=== PATIENT | female | born 1975 | race Caucasian/White ===

== ENCOUNTER 2020-10-02 19:18 | Emergency (ER) | payer BC ==
[~2020-10-02] VITALS: Ht 170.2 cm; Wt 63.5 kg
--- NOTE | 2020-10-02 20:00 | NUR ---
Lynne powers in [facility] - 10/02/20 at 2219 by HERRERA PT AMBULATED TO BATHROOM W/ ASSIST.
--- NOTE | 2020-10-02 20:00 | NUR ---
PT AMBULATED TO BATHROOM W/ ASSIST.
--- NOTE | 2020-10-02 20:28 | NUR ---
LEATHA FROM [facility], TO ER BED 11. PT IS AWAKE, ALERT BUT INTOXICATED. CRYING AT TIMES. BROUGHT IN FOR INTOXICATION S/P INGESTING 2 BOTTLES OF VANILLA EXTRACT WHICH CONTAINS 40% ETHANOL IN EACH BOTTLE. WAS AT THE BEDSIDE FOR EVAL. ORDERS RECIEVED, NOTED AND CARRIED OUT.
[2020-10-02 20:40] LABS: BASOPHILS # (AUTO) 0.1 /CMM (0.0-0.2); BASOPHILS % (AUTO) 1.1 % (0.0-2.0); EOSINOPHILS % (AUTO) 0.7 % (0.0-6.0); HEMATOCRIT 45 % (33-45); HEMOGLOBIN 15.2 g/dL (11.5-14.8); LYMPHOCYTES # (AUTO) 1.4 /CMM (0.8-4.8); LYMPHOCYTES % (AUTO) 26.3 % (20.0-44.0); MEAN CORPUSCULAR HGB CONC 34 g/dl (31.0-36.0); MEAN CORPUSCULAR VOLUME 102 fL (82-100); MONOCYTES # (AUTO) 0.2 /CMM (0.1-1.30); MONOCYTES % (AUTO) 4.2 % (2.0-12.0); NEUTROPHILS # (AUTO) 3.6 /CMM (1.8-8.9); NEUTROPHILS % (AUTO) 67.7 % (43.0-81.0); PLATELET COUNT (AUTO) 144 /CMM (150-450); RED BLOOD CELL COUNT(AUTO) 4.41 MIL/uL (4.0-5.2); WHITE BLOOD COUNT (AUTO) 5.3 K/uL (4.3-11.0)
[2020-10-02 20:46] LABS: BILIRUBIN,URINE Negative (NEGATIVE); COLOR,URINE LIGHT YELLOW (YELLOW); LEUKOCYTE ESTERASE ,URINE Negative (NEGATIVE); NITRITE, URINE Negative (NEGATIVE); PROTEIN,URINE Negative (NEGATIVE); UGLUCOSE Negative (NEGATIVE); UROBILINOGEN,URINE 0.2 EU/dL (0.2)
[2020-10-02 21:03] LABS: ALANINE AMINOTRANSFERASE 20 U/L (12-78); ALBUMIN 4.5 g/dL (3.4-5.0); ALCOHOL, BLOOD 406 mg/dL (0-0); ALKALINE PHOSPHATASE 79 U/L (46-116); ASPARTATE AMINOTRANSFERASE 51 U/L (15-37); BILIRUBIN,DIRECT 0.1 mg/dL (0.0-0.2); BILIRUBIN,TOTAL 0.4 mg/dL (0.2-1.0); CALCIUM, SERUM 8.4 mg/dL (8.5-10.1); CARBON DIOXIDE 28 mmol/L (21-32); CHLORIDE 105 mmol/L (98-107); CREATININE 0.8 mg/dL (0.6-1.3); GLUCOSE 88 mg/dL (74-106); POTASSIUM 3.6 mmol/L (3.5-5.1); SODIUM SERUM 144 mmol/L (136-145); TOTAL PROTEIN, SERUM 8.8 g/dL (6.4-8.2); UREA NITROGEN, BLOOD 11 mg/dL (7-18)
[2020-10-02 21:08] LABS: ACETAMINOPHEN < 10 ug/ml (10-30)
[2020-10-02 22:20] VITALS: BP 134/80
--- NOTE | 2020-10-02 22:20 | NUR ---
PT IS CLEARED FOR DISCHARGED AND RELEASE UNDER THE CARE OF HER ANTONY GARCÍA. PT IS AMBULATORY ON STEADY GAIT W/O ASSIST.
== END 2020-10-02 22:21 | disposition home or self-care (01) ==
LOC: ER 19:20
DX: F10.129 Alcohol abuse with intoxication, unspecified (principal); Y90.9 Presence of alcohol in blood, level not specified; F43.0 Acute stress reaction; F19.10 Other psychoactive substance abuse, uncomplicated; R05 Cough; Z20.822 Contact with and (suspected) exposure to COVID-19; F17.200 Nicotine dependence, unspecified, uncomplicated
CPT/HCPCS: 36415; 71045; 80048; 80076; 80299; 80307; 80320; 81003; 84703; 85025; 87426; 99284; C9803; G0480

== ENCOUNTER 2021-04-27 15:08 | Emergency (ER) | payer BC ==
[~2021-04-27] VITALS: Ht 162.6 cm; Wt 69.9 kg
--- NOTE | 2021-04-27 15:31 | NUR ---
[id number] FROM OUTSIDE A [facility] SLEEPING. BG 92. RECENTLY D/C'D FRM ANOTHER HOSPITAL FOR ETOH. THE PATIENT IS RESPONSIVE TO TACTILE STIMULI BY OPENING EYES. OVERALL THE PATIENT IS VERY SLEEPY. RESPIRATION REGULAR AND UNLABORED. THE PATIENT IS IN NO APPARENT DISTRESS. ATTACHED TO THE MONITOR. WARM BLANKET PROVIDED FOR COMFORT. WILL CONTINUE TO MONITOR THE PATIENT.
--- NOTE | 2021-04-27 16:14 | NUR ---
RICKY ANNALISE, STATED THAT PT WAS GOING TO TRY TO END HER LIFE TODAY. PT REFUSED TO GO TO REHAB. WAS THRETENING BODILY HARM TO HIM AND HERLSELF, VIOLENT. PT DRANK A LOT OF ALCOHOL. PT ON PSYCH MEDS. RICKY [phone].
[2021-04-27 16:23] LABS: BASOPHILS # (AUTO) 0.2 K/uL (0.0-0.2); BASOPHILS % (AUTO) 2.1 % (0.0-2.0); EOSINOPHILS % (AUTO) 1.2 % (0.0-6.0); HEMATOCRIT 37 % (33-45); HEMOGLOBIN 12.4 g/dL (11.5-14.8); LYMPHOCYTES # (AUTO) 2.4 K/uL (0.8-4.8); LYMPHOCYTES % (AUTO) 27.3 % (20.0-44.0); MEAN CORPUSCULAR HGB CONC 34 g/dl (31.0-36.0); MEAN CORPUSCULAR VOLUME 95 fL (82-100); MONOCYTES # (AUTO) 0.7 K/uL (0.1-1.30); MONOCYTES % (AUTO) 7.7 % (2.0-12.0); NEUTROPHILS # (AUTO) 5.3 K/uL (1.8-8.9); NEUTROPHILS % (AUTO) 61.7 % (43.0-81.0); PLATELET COUNT (AUTO) 207 K/uL (150-450); RED BLOOD CELL COUNT(AUTO) 3.89 MIL/uL (4.0-5.2); WHITE BLOOD COUNT (AUTO) 8.6 K/uL (4.3-11.0)
--- NOTE | 2021-04-27 16:26 | NUR ---
URINE COLLECTED AND SENT TO THE LAB
[2021-04-27 16:35] LABS: CALCIUM, SERUM 7.8 mg/dL (8.5-10.1); CARBON DIOXIDE 28 mmol/L (21-32); CHLORIDE 105 mmol/L (98-107); CREATININE 0.6 mg/dL (0.6-1.3); GLUCOSE 110 mg/dL (74-106); POTASSIUM 3.8 mmol/L (3.5-5.1); SODIUM SERUM 143 mmol/L (136-145); UREA NITROGEN, BLOOD 9 mg/dL (7-18)
[2021-04-27 16:42] LABS: MAGNESIUM 1.7 mg/dL (1.8-2.4)
[2021-04-27 16:47] LABS: ALANINE AMINOTRANSFERASE 14 U/L (12-78); ALBUMIN 3.7 g/dL (3.4-5.0); ALCOHOL, BLOOD 607 mg/dL (0-0); ALKALINE PHOSPHATASE 62 U/L (46-116); ASPARTATE AMINOTRANSFERASE 27 U/L (15-37); BILIRUBIN,DIRECT 0.1 mg/dL (0.0-0.2); BILIRUBIN,TOTAL 0.2 mg/dL (0.2-1.0); TOTAL PROTEIN, SERUM 7.2 g/dL (6.4-8.2)
[2021-04-27 16:48] LABS: ACETAMINOPHEN < 0 ug/ml (10-30)
[2021-04-27 17:26] LABS: BILIRUBIN,URINE Negative (NEGATIVE); COLOR,URINE YELLOW (YELLOW); LEUKOCYTE ESTERASE ,URINE Negative (NEGATIVE); NITRITE, URINE Negative (NEGATIVE); PH,URINE 7.5 (5.0-8.0); PROTEIN,URINE Negative (NEGATIVE); UGLUCOSE Negative (NEGATIVE); UROBILINOGEN,URINE 0.2 EU/dL (0.2)
[2021-04-27] MEDS: MAGNESIUM CHLORIDE 64 MG TABLET.SA PO SCH (20:00)
[2021-04-28] MEDS ORDERED: OLANZAPINE 10 MG VIAL IM ONE ×2 (01:55→02:00)
--- NOTE | 2021-04-28 02:00 | NUR ---
pt medicated as ordered
[2021-04-28] MEDS ORDERED: LORAZEPAM INJ 2 MG/ML VIAL ONE (03:05)
[2021-04-28] MEDS ORDERED: LORAZEPAM INJ 2 MG/ML VIAL IM ONE ×2 (03:30)
[2021-04-28] MEDS: MAGNESIUM CHLORIDE 64 MG TABLET.SA PO SCH (05:24)
--- NOTE | 2021-04-28 07:09 | NUR ---
CALLED, ASKED IF THE PT RECIEVED A PSYCH EVAL. UPDATED REGARDING PLAN OF CARE.
--- NOTE | 2021-04-28 09:24 | NUR ---
CALLED [facility] FOR PSYCH EVAL.
--- NOTE | 2021-04-28 09:25 | NUR ---
[facility] ETA 1 HOUR.
--- NOTE | 2021-04-28 09:40 | NUR ---
PATIENT A/OX4, AMBULATORY WITH STEADY GAIT, DENIES SI/HI. PT STS SHE HAS A TREATMENT CENTER TO GO TO [facility] FOR DETOX. PATIENT APPEARS TO BE ANXIOUS RIGHT NOW, AND IS REQUESTING FOR A NICOTINE PATCH OR A CIGARETTE. DR. HARPER MADE AWARE AND GOT AN ORDER FOR A NICOTINE PATCH. MADE AWARE AND REFUSES TO ROBOT DESIGNER THE PATIENT.
[2021-04-28] MEDS ORDERED: NICOTINE PATCH (21MG) 21 MG PATCH.TD24 TD ONE (10:00)
--- NOTE | 2021-04-28 10:30 | NUR ---
THE PATIENT IS ALERT AND ORIENTED X3. DENIES PAIN. IN ROOM AIR AND DENIES SOB. RESPIRATION REGULAR AND UNLABORED. DENIES SI/HI AT THIS TIME. WILL CONTINUE TO MONITOR THE PATIENT.
--- NOTE | 2021-04-28 12:03 | NUR ---
PSYCH CLINICIAN AT THE BEDSIDE
--- NOTE | 2021-04-28 12:56 | NUR ---
ATIVAN 2 MG PO ONCE PER [address] LAW. THE ORDER IS READ BACK, VERIFIED. NOTED AND CARRIED OUT.
[2021-04-28] MEDS ORDERED: LORAZEPAM 1 MG TABLET PO ONE (13:00)
[2021-04-28] MEDS ORDERED: LORAZEPAM 1 MG TABLET ONE (13:05)
--- NOTE | 2021-04-28 14:46 | NUR ---
Patient discharged to home in stable condition. Written and verbal after care instructions given. Patient verbalizes understanding of instruction.
[2021-04-28 14:47] VITALS: BP 111/72
== END 2021-04-28 14:47 | disposition home or self-care (01) ==
LOC: ER 15:13
DX: F10.129 Alcohol abuse with intoxication, unspecified (principal); E83.42 Hypomagnesemia; E83.51 Hypocalcemia; R40.4 Transient alteration of awareness; Y90.8 Blood alcohol level of 240 mg/100 ml or more
CPT/HCPCS: 36415 ×2; 70450; 80048; 80076; 80143; 80307; 80320 ×2; 81003; 82550; 83735; 84702; 85025; 96372 ×2; 99284; J2060; J3490; G0480